=== PATIENT | male | born 1970 | race Caucasian/White ===

== ENCOUNTER 2020-06-04 12:20 | Emergency (ER) | payer MEDICARE ==
[~2020-06-04] VITALS: Ht 175.3 cm; Wt 81.7 kg
[~2020-06-04 12:20] MED LIST: AUGMENTIN 875-1 EACH PO; LISINOPRIL5 MG PO; METFORMIN HCL500 MG; METOPROLOL SUC100 MG PO; PRISTIQ ER50 MG PO; SEROQUEL300 MG PO; TIZANIDINE HCL4 M1 PO; VISTARIL50 MG PO
--- OUTSIDE RECORDS SUMMARY | 2020-06-04 12:22 | XMS ---
PreManage Notification: SAYRA GUERRERO [employer] Counsellor Events No recent Security Events currently on file CRITERIA MET - [facility] - 2 Visits in 30 Days CARE PROVIDERS ALBERTO NICOLE Physician Medical Front Desk Coordinator Current PHONE: [phone] Lee has no Care Guidelines for this patient. E.Belkis VISIT COUNT (12 MO.) [address] [place] [address] TOTAL 2 NOTE: Visits indicate total known visits. ED/UCC VISIT TRACKING (12 MO.) 06/04/2020 12:21 [facility] TYPE: Emergency COMPLAINT: - ABDOMINAL PAIN 05/28/2020 19:48 [facility] OR TYPE: Emergency DIAGNOSES: - L SIDE PAIN - Acute pancreatitis without necrosis or infection, unspecified INPATIENT VISIT TRACKING (12 MO.) 05/28/2020 19:48 [facility] OR TYPE: Medical Surgical DIAGNOSES: - Acute pancreatitis without necrosis or infection, unspecified [email or web address]
[2020-06-04] MEDS ORDERED: METFORMIN HCL500 MG PO (13:15)
[2020-06-04] MEDS ORDERED: METOPROLOL SUCC25 MG PO (13:15)
[2020-06-04] MEDS ORDERED: LISINOPRIL20 MG PO (13:16)
[2020-06-04] MEDS ORDERED: LISINOPRIL40 MG PO (13:16)
[2020-06-04] MEDS ORDERED: LEVEMIR FL100 UNIT/2 SUB-Q (13:16)
[2020-06-04] MEDS ORDERED: ATORVASTATIN CA40 MG PO (13:17)
[2020-06-04] MEDS ORDERED: AMLODIPINE BESYL5 MG PO (13:17)
[2020-06-04] MEDS ORDERED: PANTOPRAZOLE SO40 MG PO (16:17)
== END 2020-06-04 16:35 | disposition home or self-care (01) ==
LOC: ED 12:20
DX: K29.20 Alcoholic gastritis without bleeding (principal); K86.0 Alcohol-induced chronic pancreatitis; E11.65 Type 2 diabetes mellitus with hyperglycemia; F15.10 Other stimulant abuse, uncomplicated; I10 Essential (primary) hypertension; F17.200 Nicotine dependence, unspecified, uncomplicated; Z88.5 Allergy status to narcotic agent; Z79.899 Other long term (current) drug therapy; Z79.4 Long term (current) use of insulin
CPT/HCPCS: 80053; 81001; 83690; 85025; 96374; 99284-25; J1815; J2405; J7121

== ENCOUNTER 2023-04-17 09:30 | Emergency (ER) | payer OTHER ==
[~2023-04-17] VITALS: Ht 175.3 cm; Wt 75.6 kg
[~2023-04-17 09:30] MED LIST changes: +AMLODIPINE BESYL5 MG PO; +ATORVASTATIN CA40 MG PO; +BUPRENORPHINE-1 EACH SL; +LEVEMIR FL100 UNIT/2 SUB-Q; +LISINOPRIL20 MG PO; +LISINOPRIL40 MG PO; +METFORMIN HCL500 MG PO; +METOPROLOL SUCC25 MG PO; +PANTOPRAZOLE SO40 MG PO
[2023-04-17] MEDS ORDERED: LORATADINE10 MG PO (10:48)
[2023-04-17] MEDS ORDERED: ASPIRIN81 MG PO (10:49)
[2023-04-17 11:10] LABS: BASOPHILS 0.7 % (0-2); EOSINOPHILS 1.5 % (0-6); HEMATOCRIT 35.5 % (35.0-50.0); HEMOGLOBIN 12.4 g/dL (12.0-18.0); LYMPHOCYTES 28.1 % (24-44); MCV 91.6 fl (81-99); MONOCYTES 7.1 % (0-12); NEUTROPHILS 62.6 % (39-80); PLATELET COUNT 165 K/uL (140-440); RBC 3.87 M/ul (4.3-5.7); RDW 13.5 (10.5-15.0)
[2023-04-17 11:22] LABS: ALBUMIN 3.3 g/dL (3.4-5.0); ALBUMIN/GLOBULIN RATIO 0.89 (1.1-2.4); ANION GAP 14.6 (7-21); BILIRUBIN, TOTAL 0.4 ng/dL (0.2-1.0); BUN/CREATININE RATIO 16.49 (6.0-28.6); CALCIUM 9.1 mg/dL (8.5-10.1); CREATININE, SERUM 0.97 mg/dL (0.70-1.30); POTASSIUM 4.6 mmol/L (3.5-5.1)
[2023-04-17] MEDS ORDERED: CEFAZOLIN SODIUM 2 GM/20 ML SYR IV ONE (11:45)
[2023-04-17] MEDS ORDERED: CEPHALEXIN500 M1 PO (12:42)
[2023-04-17 12:47] VITALS: BP 154/92
== END 2023-04-17 12:47 | disposition home or self-care (01) ==
LOC: ED 09:30
PROVIDERS: Emergency Medicine
DX: L03.114 Cellulitis of left upper limb (principal); I10 Essential (primary) hypertension; E11.9 Type 2 diabetes mellitus without complications; F17.200 Nicotine dependence, unspecified, uncomplicated; Z88.5 Allergy status to narcotic agent; Z79.899 Other long term (current) drug therapy; Z79.4 Long term (current) use of insulin; Z79.82 Long term (current) use of aspirin
CPT/HCPCS: 36415; 71046; 72100; 80053; 85025; J0690

== ENCOUNTER 2023-07-08 09:46 | Emergency (ER) | payer OTHER ==
[~2023-07-08] VITALS: Ht 175.3 cm; Wt 74.6 kg
[~2023-07-08 09:46] MED LIST changes: +ASPIRIN81 MG PO; +CEPHALEXIN500 M1 PO; +LORATADINE10 MG PO
[2023-07-08 11:13] VITALS: BP 115/80
== END 2023-07-08 11:14 | disposition home or self-care (01) ==
LOC: ED 09:46
DX: K40.90 Unilateral inguinal hernia, without obstruction or gangrene, not specified as recurrent (principal); I10 Essential (primary) hypertension; E11.9 Type 2 diabetes mellitus without complications; F41.9 Anxiety disorder, unspecified; F32.A Depression, unspecified; F17.200 Nicotine dependence, unspecified, uncomplicated; Z88.5 Allergy status to narcotic agent; Z79.899 Other long term (current) drug therapy; Z79.82 Long term (current) use of aspirin
CPT/HCPCS: 99283

== ENCOUNTER 2023-08-19 17:04 | Emergency (ER) | payer OTHER ==
[~2023-08-19] VITALS: Ht 175.3 cm; Wt 77.3 kg
[2023-08-19] MEDS ORDERED: GABAPENTIN300 MG PO (18:26)
[2023-08-19] MEDS ORDERED: CELECOXIB100 MG PO (18:26)
[2023-08-19 19:05] LABS: BASOPHILS 0.5 % (0-2); EOSINOPHILS 1.6 % (0-6); HEMOGLOBIN 12.5 g/dL (12.0-18.0); LYMPHOCYTES 28.2 % (24-44); MCH 32.1 (27-36); MCHC 33.7 g/dl (30-36); MCV 95.1 fl (81-99); MONOCYTES 8.2 % (0-12); NEUTROPHILS 61.5 % (39-80); PLATELET COUNT 190 K/uL (140-440); RBC 3.89 M/ul (4.3-5.7); RDW 12.6 (10.5-15.0)
[2023-08-19 19:14] LABS: ALBUMIN 3.3 g/dL (3.4-5.0); ALBUMIN/GLOBULIN RATIO 0.85 (1.1-2.4); ANION GAP 10.4 (7-21); BILIRUBIN, TOTAL 0.8 ng/dL (0.2-1.0); BUN/CREATININE RATIO 14.89 (6.0-28.6); CALCIUM 8.6 mg/dL (8.5-10.1); CREATININE, SERUM 0.94 mg/dL (0.70-1.30); POTASSIUM 4.4 mmol/L (3.5-5.1); PROTEIN, TOTAL 7.2 g/dL (6.4-8.2)
[2023-08-19] MEDS ORDERED: KETOROLAC TROMETHAMINE 15 MG/ML VIAL IV ONE (19:15)
[2023-08-19] MEDS ORDERED: LACTATED RINGER'S 1,000 ML IV ONE (19:15)
[2023-08-19 19:16] VITALS: BP 124/83
== END 2023-08-19 19:16 | disposition left against medical advice (07) ==
LOC: ED 17:04
PROVIDERS: Internal Medicine
DX: R10.11 Right upper quadrant pain (principal); R10.12 Left upper quadrant pain; I10 Essential (primary) hypertension; E11.9 Type 2 diabetes mellitus without complications; F17.200 Nicotine dependence, unspecified, uncomplicated; Z79.899 Other long term (current) drug therapy; Z79.4 Long term (current) use of insulin; Z88.5 Allergy status to narcotic agent
CPT/HCPCS: 36415; 80053; 83690; 85025

== ENCOUNTER 2023-09-23 09:21 | Emergency (ER) | payer OTHER ==
[~2023-09-23] VITALS: Ht 175.3 cm; Wt 73.8 kg
[~2023-09-23 09:21] MED LIST changes: +CELECOXIB100 MG PO; +GABAPENTIN300 MG PO
[2023-09-23] MEDS ORDERED: ASPIRIN 81 MG CHEW PO ONE (09:30)
[2023-09-23] MEDS ORDERED: NITROGLYCERIN 0.4 MG SUBL SL PRN (09:30)
[2023-09-23 09:40] LABS: BASOPHILS 0.3 % (0-2); EOSINOPHILS 2.7 % (0-6); HEMATOCRIT 37.4 % (35.0-50.0); HEMOGLOBIN 13.2 g/dL (12.0-18.0); LYMPHOCYTES 30.7 % (24-44); MCH 32.3 (27-36); MCHC 35.2 g/dl (30-36); MCV 91.9 fl (81-99); MONOCYTES 7.7 % (0-12); NEUTROPHILS 58.6 % (39-80); PLATELET COUNT 188 K/uL (140-440); RBC 4.07 M/ul (4.3-5.7); RDW 12.7 (10.5-15.0)
[2023-09-23 09:59] LABS: ALBUMIN 3.6 g/dL (3.4-5.0); ALBUMIN/GLOBULIN RATIO 0.92 (1.1-2.4); ANION GAP 15.4 (7-21); BILIRUBIN, TOTAL 0.4 ng/dL (0.2-1.0); BUN/CREATININE RATIO 14.89 (6.0-28.6); CALCIUM 9.1 mg/dL (8.5-10.1); CREATININE, SERUM 0.94 mg/dL (0.70-1.30); MAGNESIUM 1.6 mg/dL (1.8-2.4); POTASSIUM 4.4 mmol/L (3.5-5.1); PROTEIN, TOTAL 7.5 g/dL (6.4-8.2)
[2023-09-23 11:09] VITALS: BP 105/82
--- NOTE | 2023-09-23 15:09 | EKG ---
[facility] [address] [facility] [place] [address] Signed Normal sinus rhythm Left axis deviation Moderate voltage criteria for LVH, may be normal variant ( R in aVL , Stewart product ) Septal infarct , age undetermined Abnormal ECG No previous ECGs available Confirmed by Gerry Montgomery MD () on 09/23/2023 3:09:16 PM Electronically Signed By: GERRY MONTGOMERY MD 09/23/23 1509 PATIENT NAME: MARIANGEL GUERREROManoj Arzola Electrocardiogram DATE OF : 70 PHYSICIAN: GERRY MONTGOMERY MD REPORT #: [id number] REPORT IS CONFIDENTIAL AND NOT TO BE RELEASED WITHOUT AUTHORIZATION
== END 2023-09-23 11:09 | disposition home or self-care (01) ==
LOC: ED 09:21
PROVIDERS: Emergency Medicine
DX: R07.9 Chest pain, unspecified (principal); E11.9 Type 2 diabetes mellitus without complications; I10 Essential (primary) hypertension; F17.200 Nicotine dependence, unspecified, uncomplicated; Z88.5 Allergy status to narcotic agent; Z79.84 Long term (current) use of oral hypoglycemic drugs; Z79.4 Long term (current) use of insulin; Z79.899 Other long term (current) drug therapy
CPT/HCPCS: 36415; 71045; 80053; 83735; 84484; 85025; 93005; 93010; 99285-25

== ENCOUNTER 2023-11-01 09:54 | Emergency (ER) | payer OTHER ==
[~2023-11-01] VITALS: Ht 175.3 cm; Wt 76.7 kg
[2023-11-01] MEDS ORDERED: DOXYCYCLINE HY100 MG PO (10:15)
[2023-11-01] MEDS ORDERED: METRONIDAZOLE500 MG PO (10:15)
[2023-11-01 10:21] VITALS: BP 137/100
== END 2023-11-01 10:25 | disposition home or self-care (01) ==
LOC: ED 09:54
DX: K08.89 Other specified disorders of teeth and supporting structures (principal); I38 Endocarditis, valve unspecified; I10 Essential (primary) hypertension; E11.9 Type 2 diabetes mellitus without complications; I25.2 Old myocardial infarction; F17.200 Nicotine dependence, unspecified, uncomplicated; Z85.71 Personal history of Hodgkin lymphoma; Z88.5 Allergy status to narcotic agent; Z79.4 Long term (current) use of insulin; Z79.84 Long term (current) use of oral hypoglycemic drugs; Z79.899 Other long term (current) drug therapy
CPT/HCPCS: 99282

== ENCOUNTER 2023-11-16 10:09 | Emergency (ER) | payer OTHER ==
[~2023-11-16] VITALS: Ht 175.3 cm; Wt 74.4 kg
[~2023-11-16 10:09] MED LIST changes: +DOXYCYCLINE HY100 MG PO; +METRONIDAZOLE500 MG PO
[2023-11-16] MEDS ORDERED: PENICILLIN V P500 MG PO (10:32)
[2023-11-16 10:40] VITALS: BP 141/93
== END 2023-11-16 10:40 | disposition home or self-care (01) ==
LOC: ED 10:09
DX: R20.2 Paresthesia of skin (principal); I10 Essential (primary) hypertension; I25.2 Old myocardial infarction; E11.9 Type 2 diabetes mellitus without complications; F17.200 Nicotine dependence, unspecified, uncomplicated; Z88.5 Allergy status to narcotic agent; Z79.899 Other long term (current) drug therapy; Z79.4 Long term (current) use of insulin; Z79.84 Long term (current) use of oral hypoglycemic drugs
CPT/HCPCS: 99283

== ENCOUNTER 2024-04-10 08:24 | Emergency (ER) | payer OTHER ==
[~2024-04-10] VITALS: Ht 175.3 cm; Wt 76.7 kg
[~2024-04-10 08:24] MED LIST changes: +PENICILLIN V P500 MG PO
[2024-04-10] MEDS ORDERED: BUPROPION XL300 MG PO (08:42)
[2024-04-10] MEDS ORDERED: GABAPENTIN600 MG PO (08:43)
[2024-04-10] MEDS ORDERED: INSULIN GL100 UNIT/2 SUB-Q (08:44)
[2024-04-10] MEDS ORDERED: ONDANSETRON ODT8 MG PO (08:57)
[2024-04-10] MEDS ORDERED: ONDANSETRON 4 MG TAB ODT SL ONE (09:00)
[2024-04-10] MEDS ORDERED: ACETAMINOPHEN 500 MG TAB PO ONE (09:00)
[2024-04-10 09:06] VITALS: BP 137/87
== END 2024-04-10 09:06 | disposition home or self-care (01) ==
LOC: ED 08:24
DX: E11.65 Type 2 diabetes mellitus with hyperglycemia (principal); I10 Essential (primary) hypertension; I25.2 Old myocardial infarction; F17.200 Nicotine dependence, unspecified, uncomplicated; Z85.71 Personal history of Hodgkin lymphoma; Z95.5 Presence of coronary angioplasty implant and graft; Z88.5 Allergy status to narcotic agent; Z79.4 Long term (current) use of insulin; Z79.84 Long term (current) use of oral hypoglycemic drugs; Z79.899 Other long term (current) drug therapy; Z91.81 History of falling
CPT/HCPCS: 99284; A9270

== ENCOUNTER 2024-06-14 12:02 | Emergency (ER) | payer OTHER ==
[~2024-06-14] VITALS: Ht 175.3 cm; Wt 77.0 kg
[~2024-06-14 12:02] MED LIST changes: +BUPROPION XL300 MG PO; +GABAPENTIN600 MG PO; +INSULIN GL100 UNIT/2 SUB-Q; +ONDANSETRON ODT8 MG PO
[2024-06-14] MEDS ORDERED: ASPIRIN 81 MG CHEW PO ONE (12:15)
[2024-06-14 12:16] LABS: BASOPHILS 0.6 % (0-2); EOSINOPHILS 0.3 % (0-6); HEMATOCRIT 33.3 % (35.0-50.0); HEMOGLOBIN 11.7 g/dL (12.0-18.0); LYMPHOCYTES 18.6 % (24-44); MCH 32.8 (27-36); MCHC 35.2 g/dl (30-36); MCV 93.1 fl (81-99); MONOCYTES 6.9 % (0-12); NEUTROPHILS 73.6 % (39-80); PLATELET COUNT 196 K/uL (140-440); RBC 3.57 M/ul (4.3-5.7); RDW 13.6 (10.5-15.0)
[2024-06-14] MEDS ORDERED: VENTOLIN HFA18 GM INH (12:19)
[2024-06-14] MEDS ORDERED: ASPIRIN81 MG PO (12:20)
[2024-06-14] MEDS ORDERED: INSULIN LI100 UNIT/2 SUB-Q (12:21)
[2024-06-14] MEDS ORDERED: BUPRENO-NALOX1 EACH SL (12:22)
[2024-06-14] MEDS ORDERED: TRAZODONE HCL150 MG PO (12:22)
[2024-06-14 12:37] LABS: ALBUMIN 3.8 g/dL (3.4-5.0); ALBUMIN/GLOBULIN RATIO 1.12 (1.1-2.4); ANION GAP 13.8 (7-21); BUN/CREATININE RATIO 28.81 (6.0-28.6); CALCIUM 8.4 mg/dL (8.5-10.1); CREATININE, SERUM 1.18 mg/dL (0.70-1.30); MAGNESIUM 1.4 mg/dL (1.8-2.4); POTASSIUM 4.8 mmol/L (3.5-5.1); PROTEIN, TOTAL 7.2 g/dL (6.4-8.2)
[2024-06-14] MEDS ORDERED: ondansetron HCL 4 MG/2 ML VIAL IV ONE ×2 (12:45→15:15)
[2024-06-14] MEDS ORDERED: KETOROLAC TROMETHAMINE 15 MG/ML VIAL IV ONE (12:45)
[2024-06-14 14:06] LABS: BILIRUBIN, URINE NEGATIVE (negative); BLOOD/HGB, URINE NEGATIVE (Negative); KETONE, URINE TRACE (Negative); LEUK ESTERASE, URINE NEGATIVE (negative); NITRITE, URINE NEGATIVE (negative)
[2024-06-14 14:12] LABS: BACTERIA, URINE NONE SEEN /hpf (negative); CASTS, URINE NONE SEEN \\lpf; COLLECTION TYPE, URINE CLEAN CATCH; CRYSTALS, URINE NONE SEEN (0-1+); EPITHELIAL CELLS, URINE 0 /lpf (0-1+); RED BLOOD CELLS, URINE 0-1 /hpf (0-5); REFLEX CULTURE, URINE No (No); WHITE BLOOD CELLS, URINE 0-1 /HPF (0-5)
[2024-06-14] MEDS ORDERED: HYDROmorphone HCL 1 MG/ML SYR IV ONE (15:15)
[2024-06-14] MEDS ORDERED: SODIUM CHLORIDE 0.9% 1,000 ML IV PRN (15:30)
[2024-06-14] MEDS ORDERED: LACTULOSE20 GM PO (17:53)
[2024-06-14 18:05] VITALS: BP 107/75
--- NOTE | 2024-06-14 22:22 | EKG ---
[facility] [address] [place] [address] Signed Normal sinus rhythm Minimal voltage criteria for LVH, may be normal variant ( R in aVL ) Septal infarct (cited on or before 23-SEP-2023) Abnormal ECG When compared with ECG of 23-SEP-2023 09:20, Questionable change in initial forces of Septal leads Confirmed by Gerry Montgomery MD () on 06/14/2024 10:22:23 PM Electronically Signed By: GERRY MONTGOMERY MD 06/14/242221 PATIENT NAME: SAYRA GUERRERO Electrocardiogram DATE OF : 70 PHYSICIAN: GERRY MONTGOMERY MD REPORT #: [id number] REPORT IS CONFIDENTIAL AND NOT TO BE RELEASED WITHOUT AUTHORIZATION
== END 2024-06-14 18:06 | disposition home or self-care (01) ==
LOC: ED 12:02
PROVIDERS: Emergency Medicine
DX: R07.9 Chest pain, unspecified (principal); K59.00 Constipation, unspecified; F17.200 Nicotine dependence, unspecified, uncomplicated
CPT/HCPCS: 36415; 71045; 71275; 74174; 76705; 80053; 81001; 83735; 84484; 85025; 93005; 93010; 99285-25; A9270; J1171; J1885; J2405; J7030; Q9967